=== PATIENT | male | born 1995 | race Caucasian/White ===

== ENCOUNTER 2022-04-25 11:28 | Emergency (ER) | payer OTHER, SELFPAY ==
--- NOTE | ~2022-04-25 | XR_ITS ---
XR wrist RT min 3V 04/25/2022 13:01 INDICATION: Right wrist pain PROCEDURE: 4 views right wrist COMPARISON: No prior studies for comparison. FINDINGS: Fracture, dislocation or subluxation is not identified. The soft tissues appear within norm al limits. No foreign bodies are identified. IMPRESSION: 1: NO ACUTE BONE OR JOINT ABNORMALITY IDENTIFIED. Reviewed, dictated and finalized at location A.
[2022-04-25 11:47] VITALS: BP 170/93; PULSE 61; RESP 16; TEMP 37.1; O2SAT 100
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
--- NOTE | 2022-04-25 13:13 | PC.NURSE ---
1231- Nurse to nurse report received. Pt coming to [facility] as [facility] is having xray difficulties
--- NOTE | 2022-04-25 13:14 | PC.NURSE ---
1246- Pt has arrived at facility.
== END 2022-04-25 13:29 | disposition home or self-care (01) ==
PROVIDERS: Emergency Provider Nurse Practitioner Family
DX: S63.501A Unspecified sprain of right wrist, initial encounter (principal); S66.911A Strain of unspecified muscle, fascia and tendon at wrist and hand level, right hand, initial encounter; V86.55XA Driver of 3- or 4- wheeled all-terrain vehicle (ATV) injured in nontraffic accident, initial encounter
CPT/HCPCS: 73110; 99213; G0463

== ENCOUNTER 2022-05-18 10:43 | Outpatient (CLI) | payer OTHER, SELFPAY ==
[2022-05-18 19:32] LABS: Basophils Percent Auto 0.4 % (0.2-1.2); Eosinophils Absolute Auto 0.1 K/mm3 (0-0.3); Hematocrit 47.2 % (42.0-52.0); Hemoglobin 16.6 g/dL (14.0-18.0); Immature Granulocyte Absolute 0.01 K/mm3 (0.00-0.031); Immature Granulocyte Percent A 0.1 % (0-0.5); Lymphocytes Absolute Auto 1.98 K/mm3 (0.9-3.2); Lymphocytes Percent Auto 28.3 % (18.3-44.2); Mean Corpuscular HGB Conc 35.2 g/dl (32-36); Mean Corpuscular Hemoglobin 29.5 pg (26-34); Mean Platelet Volume 11.5 fl (7.4-10.4); Monocytes Absolute Auto 0.5 K/mm3 (0.1-0.6); Monocytes Percent Auto 7.1 % (2.6-8.5); Neutrophils Absolute Auto 4.4 K/mm3 (1.3-6.7); Neutrophils Percent Auto 63.1 % (45.5-73.1); Platelet Count Result 219 k/mm3 (150-375); Red Blood Count 5.62 M/mm3 (4.6-6.20); Red Cell Distribution Width 12.1 % (11.5-14.5)
[2022-05-18 20:10] LABS: Alanine Aminotransferase 27 U/L (6-50); Albumin Level 4.8 g/dL (3.5-5.1); Alkaline Phosphatase 129 U/L (38-126); Anion Gap 9 mmol/L (8-16); Aspartate Amino Transferase 35 U/L (17-59); Bilirubin,Total 1.7 mg/dL (0.2-1.3); Blood Urea Nitrogen 16 mg/dL (9-20); Carbon Dioxide 27 mmol/L (22-30); Chloride 102 mmol/L (98-107); Cholesterol 168 mg/dL (0-200); Estimated Glomerular Filt Rate > 60; Glucose 99 mg/dL (65-110); HDL Direct 41 mg/dL; Potassium 4.8 mmol/L (3.4-5.0); Sodium 138 mmol/L (137-145); Triglycerides 86 mg/dL (<150)
[2022-05-18 20:31] LABS: Vitamin D 25 Hydroxy 43.9 ng/mL
[2022-05-18 22:03] LABS: LDL Cholesterol Direct 90 mg/dL
[2022-05-20 04:29] LABS: Free T4 Free Thyroxine Reflex 1.15 ng/dL (0.78-2.19)
[2022-05-20 05:09] LABS: Total Triiodothyronine (T3) 1.31 NG/ML (0.97-1.69)
== END 2022-05-18 10:44 | disposition home or self-care (01) ==
LOC: ANHGOSHLAB 10:44
PROVIDERS: PCP Family Medicine; Visit Provider Family Medicine
DX: Z00.00 Encounter for general adult medical examination without abnormal findings (principal); E55.9 Vitamin D deficiency, unspecified; Z13.220 Encounter for screening for lipoid disorders; Z13.29 Encounter for screening for other suspected endocrine disorder
CPT/HCPCS: 36415; 80053; 80061; 82306; 84439; 84443; 84480; 85025

== ENCOUNTER 2023-05-30 08:46 | Outpatient (CLI) | payer OTHER, SELFPAY ==
[2023-05-30 21:17] LABS: Alanine Aminotransferase 21 U/L (6-50); Albumin Level 4.6 g/dL (3.5-5.1); Alkaline Phosphatase 148 U/L (38-126); Anion Gap 11 mmol/L (8-16); Aspartate Amino Transferase 35 U/L (17-59); Bilirubin,Total 1.3 mg/dL (0.2-1.3); Blood Urea Nitrogen 16 mg/dL (9-20); Calcium 9.1 mg/dL (8.4-10.2); Carbon Dioxide 25 mmol/L (22-30); Chloride 103 mmol/L (98-107); Cholesterol 179 mg/dL (0-200); Estimated Glomerular Filt Rate > 60; Glucose 93 mg/dL (65-110); HDL Direct 45 mg/dL; LDL Cholesterol Direct 95 mg/dL; Potassium 4.5 mmol/L (3.4-5.0); Sodium 139 mmol/L (137-145); Triglycerides 141 mg/dL (<150)
== END 2023-05-30 08:47 | disposition home or self-care (01) ==
LOC: ANHGOSHLAB 08:47
PROVIDERS: PCP Family Medicine; Visit Provider Family Medicine
DX: Z13.220 Encounter for screening for lipoid disorders (principal); E53.8 Deficiency of other specified B group vitamins; R03.0 Elevated blood-pressure reading, without diagnosis of hypertension; E55.9 Vitamin D deficiency, unspecified; I10 Essential (primary) hypertension
CPT/HCPCS: 36415; 80053; 80061; 82306; 82607; 84443

== ENCOUNTER 2023-05-30 11:00 | Outpatient (CLI) | payer OTHER, SELFPAY ==
--- NOTE | ~2023-05-30 | XR_ITS ---
Right wrist Technique: PA, oblique, lateral, and ulnar deviation views were obtained. Clinical History: Pain Findings: No acute fracture or dislocation is seen. Osseous alignment is anatomic. Joint spaces are p reserved. Soft tissues are unremarkable. Impression: Unremarkable right wrist radiographs. Reviewed, dictated and finalized at location . [employer] Impression: Unremarkable right wrist radiographs.
== END 2023-05-30 11:01 | disposition home or self-care (01) ==
LOC: ANHIMG 11:05
PROVIDERS: PCP Family Medicine; Visit Provider Plastic Surgery
DX: G56.21 Lesion of ulnar nerve, right upper limb (principal)
CPT/HCPCS: 73110

== ENCOUNTER 2023-06-14 08:55 | Outpatient (CLI) | payer OTHER, SELFPAY ==
--- NOTE | 2023-06-14 11:00 | NEURO_ITS ---
Impression: # Complains of numbness of wrist and 5th finger. # Normal Nerve Conduction Study; No Carpal Tunnel Syndrome or ulnar neuropathy. # Needle/EMG exam mildly neurogenic. # Clinical correlation recommended; Higher involvement needs to be ruled out. Nerve Conduction Studies Anti Sensory Summary Table Stim Site NR Peak (ms) P-T Amp (?V) Site1 Site2 Delta-P (ms) Dist (cm) Dennys (m/s) Right Median Anti Sensory (2-3nd Digit) Wrist 2.9 81.5 Wrist 2-3nd Digit 2.9 14.0 48 Wrist 2.7 79.0 Wrist 2-3nd Digit 2.9 14.0 48 Right Radial Anti Sensory (Base 1st Digit) Wrist 2.5 23.2 Wrist Base 1st Digit 2.5 0.0 Right Ulnar Anti Sensory (5th Digit) Wrist 2.7 60.7 Wrist 5th Digit 2.7 14.0 52 Motor Summary Table Stim Site NR Onset (ms) O-P Amp (mV) Site1 Site2 Delta-0 (ms) Dist (cm) Dennys (m/s) Right Median Motor (Abd Poll Brev) Wrist 3.8 4.4 Elbow Wrist 6.0 34.0 57 Elbow 9.8 6.8 Right Ulnar Motor (Abd Dig Minimi) Wrist 2.6 6.1 A Elbow Wrist 5.6 32.0 57 A Elbow 8.2 5.5 F Wave Studies NR F-Lat (ms) L-R F-Lat (ms) Right Median (Mrkrs) (Abd Poll Brev) 29.55 Right Ulnar (Mrkrs) (Abd Dig Min) 28.89 EMG Side Muscle Nerve Root Ins Act Fibs Amp Dur Recrt Comment Right 1stDorInt Ulnar C8-T1 Nml Nml Nml >12ms Reduced Right Ext Indicis Radial (Post Int) C7-8 Nml Nml Nml Nml Nml Right Ext Digitorum Radial (Post Int) C7-8 Nml Nml Nml Nml Nml Right BrachioRad Radial C5-6 Nml Nml Nml Nml Nml Right PronatorTeres Median C6-7 Nml Nml Nml Nml Nml Right Abd Poll Brev Median C8-T1 Nml Nml Nml >12ms Reduced Right ABD Dig Min Ulnar C8-T1 Nml Nml Nml >12ms Reduced Right Biceps Musculocut C5-6 Nml Nml Nml >12ms Reduced Right Triceps Radial C6-7-8 Nml Nml Nml Nml Nml Right Deltoid Axillary C5-6 Nml Nml Nml Nml Nml MTDD
== END 2023-06-14 08:56 | disposition home or self-care (01) ==
LOC: ANHNEURO 08:56
PROVIDERS: PCP Family Medicine; Visit Provider Psychiatry & Neurology Neurology
DX: G56.21 Lesion of ulnar nerve, right upper limb (principal)
CPT/HCPCS: 95886; 95909